=== PATIENT | female | born 1975 | race African-American/Black ===

== ENCOUNTER 2021-09-18 04:29 | Inpatient (IN) | payer OTHER ==
[2021-09-14 12:32] VITALS: BMI 25.5
[2021-09-18] MEDS ORDERED: BUPIVACAINE LIPOSOME/PF (EXPAREL) 266 MG/20 ML VIAL ONE (07:09)
[2021-09-18] MEDS ORDERED: BUPIVACAINE HCL/PF 0.5% (5MG/ML) 10 ML VIAL ONE (07:10)
[2021-09-18] MEDS ORDERED: MIDAZOLAM HCL 2 MG/2 ML SINGLE DOSE VIAL ONE ×2 (07:11)
[2021-09-18] MEDS ORDERED: LIDOCAINE HCL/PF 2% SDV 5ML VIAL ONE (07:44)
[2021-09-18] MEDS ORDERED: ACETAMINOPHEN INJECTION 100 ML IVPB ONE (07:44)
[2021-09-18] MEDS ORDERED: GLYCOPYRROLATE 0.2 MG/1 ML VIAL ONE (07:44)
[2021-09-18] MEDS ORDERED: DEXAMETHASONE SOD PHOSPHATE 4 MG/1 ML VIAL ONE (07:44)
[2021-09-18] MEDS ORDERED: PROPOFOL 20 ML ONE ×5 (07:45→10:08)
[2021-09-18] MEDS ORDERED: fentaNYL CITRATE 250 MCG/5 ML VIAL ONE (07:45)
[2021-09-18] MEDS ORDERED: NEOSTIGMINE METHYLSULFATE 0.5 MG/ML - 10 ML MDV ONE (07:45)
[2021-09-18] MEDS ORDERED: CEFAZOLIN 2 GM in DEXTROSE 5%-WATER - 100 ML IVPB ONE (08:30)
[2021-09-18] MEDS ORDERED: SEVOFLURANE 250 ML BTL ONE (08:31)
[2021-09-18] MEDS ORDERED: DESFLURANE GAS 240 ML BOTTLE IH ONE (08:31)
[2021-09-18] MEDS ORDERED: ceFAZolin SODIUM 1 GM VIAL IVPB ONE (08:34)
[2021-09-18] MEDS ORDERED: TRANEXAMIC ACID 1000 MG/10 ML VIAL ONE (08:36)
[2021-09-18] MEDS ORDERED: ONDANSETRON 4 MG/2 ML VIAL IVPUSH PRN ×2 (09:59→10:34)
[2021-09-18] MEDS ORDERED: HYDROmorphone HCl 2 MG/ML VIAL ONE (10:02)
[2021-09-18] MEDS ORDERED: oxyCODONE HCL 5 MG TABLET PO PRN (10:02)
[2021-09-18] MEDS ORDERED: KETOROLAC TROMETHAMINE 30 MG/1 ML VIAL IVPUSH SCH (10:15)
[2021-09-18] MEDS ORDERED: IBUPROFEN 800 MG/8 ML IJ IVPB PRN ×2 (10:34)
[2021-09-18] MEDS ORDERED: BISACODYL 5 MG TABLET.DR (FP) PO PRN (10:34)
[2021-09-18] MEDS ORDERED: ACETAMINOPHEN 325 MG TABLET (FP) PO PRN (10:34)
[2021-09-18] MEDS: ACETAMINOPHEN 1000 MG/100 ML BAG IVPB SCH ×3 (10:40→17:37)
[2021-09-18] MEDS ORDERED: IBUPROFEN 600 MG TABLET (FP) PO PRN (12:36)
[2021-09-18] MEDS: LACTATED RINGERS SOLUTION 1,000 ML IV SCH ×2 (12:40→20:00)
[2021-09-18] MEDS ORDERED: DEXTROSE 5%-WATER - 50 ML IVPB ONE (17:11)
[2021-09-18] MEDS ORDERED: ceFAZolin SODIUM 1 GM VIAL ONE (17:12)
[2021-09-18] MEDS: CEFAZOLIN 1 GM in DEXTROSE 5%-WATER - 50 ML IVPB SCH ×2 (17:18→17:38)
[2021-09-18] MEDS: oxyCODONE HCL 5 MG TABLET PO PRN ×2 (18:14→22:00)
[2021-09-18] MEDS: SIMETHICONE 80 MG TAB.CHEW (FP) PO PRN (21:59)
[2021-09-19] MEDS ORDERED: DEXTROSE 5%-WATER - 50 ML IVPB ONE ×2 (01:55→10:02)
[2021-09-19] MEDS ORDERED: ceFAZolin SODIUM 1 GM VIAL ONE ×2 (01:56→10:02)
[2021-09-19] MEDS: CEFAZOLIN 1 GM in DEXTROSE 5%-WATER - 50 ML IVPB SCH ×2 (02:00→10:08)
[2021-09-19] MEDS: oxyCODONE HCL 5 MG TABLET PO PRN ×4 (02:14→20:12)
[2021-09-19] MEDS: ACETAMINOPHEN 1000 MG/100 ML BAG IVPB SCH (02:15)
[2021-09-19 07:36] LABS: HEMATOCRIT 32.6 % (32.4-45.2); MCH 26.2 pg (25.7-33.7); MCHC 30.8 g/dl (32.0-36.0); MEAN CELL VOLUME 85.3 fl (80-96); MEAN PLT VOLUME 8.8 fl (7.5-11.1); PLATELET COUNT 151 10^3/uL (134-434); RBC 3.82 M/mm3 (3.60-5.2); RDW 29.2 % (11.6-15.6); WHITE BLOOD COUNT 4.9 K/mm3 (4.0-10.0)
[2021-09-19 07:50] LABS: BLOOD UREA NITROGEN 6.2 mg/dL (7-18); CALCIUM 8.3 mg/dL (8.5-10.1)
[2021-09-19 07:54] LABS: CREATININE 0.6 mg/dL (0.55-1.3)
[2021-09-19] MEDS: DOCUSATE SODIUM 100 MG CAPSULE (FP) PO PRN ×2 (08:25→15:49)
[2021-09-19] MEDS: SIMETHICONE 80 MG TAB.CHEW (FP) PO PRN ×2 (08:26→15:49)
[2021-09-19] MEDS ORDERED: IBUPROFEN 600 MG TABLET (FP) PO PRN ×2 (10:00→10:35)
[2021-09-19] MEDS ORDERED: PATIENT'S OWN MEDICATION (NON-FORMULARY) (Iron,Carb/Vit C/Vit B12/Folic [Iron 100 Plus Tab PO SCH (10:00)
[2021-09-19] MEDS: CYANOCOBALAMIN 1,000 MCG TABLET (FP) PO SCH (10:07)
[2021-09-19] MEDS: ENOXAPARIN NA (PORCINE) 40 MG/0.4 ML DISP.SYRIN SQ SCH (10:07)
[2021-09-20] MEDS: oxyCODONE HCL 5 MG TABLET PO PRN ×2 (00:28→04:35)
[2021-09-20] MEDS: SIMETHICONE 80 MG TAB.CHEW (FP) PO PRN ×2 (00:28→04:35)
[2021-09-20] MEDS: ENOXAPARIN NA (PORCINE) 40 MG/0.4 ML DISP.SYRIN SQ SCH (09:51)
[2021-09-20] MEDS: CYANOCOBALAMIN 1,000 MCG TABLET (FP) PO SCH (09:51)
[2021-09-20 11:08] VITALS: BP 131/86; PULSE 79; TEMP 98.2
== END 2021-09-20 13:25 | disposition home or self-care (01) | DRG 743 ==
LOC: J2C 04:29 → J3W 12:46
PROVIDERS: ADMIT Obstetrics & Gynecology; ATTEND Obstetrics & Gynecology
PROC: 0UT70ZZ Resection of Bilateral Fallopian Tubes, Open Approach (ICD-10-PCS; 2021-09-18)
PROC: 0UT20ZZ Resection of Bilateral Ovaries, Open Approach (ICD-10-PCS; 2021-09-18)
PROC: 0UT90ZL Resection of Uterus, Supracervical, Open Approach (ICD-10-PCS; principal; 2021-09-18 08:00)
DX: D25.9 Leiomyoma of uterus, unspecified (principal); F17.210 Nicotine dependence, cigarettes, uncomplicated
CPT/HCPCS: 36415; 80048; 81025; 85027; 86850; 86900; 86901; 94010; 94760; J0131